=== PATIENT | female | born 1990 | race Caucasian/White ===

== ENCOUNTER 2022-03-05 19:34 | Emergency (ER) | payer SELFPAY ==
[~2022-03-05] VITALS: Ht 160 cm; Wt 74.0 kg
[2022-03-05 19:39] VITALS: BP 108/68
== END 2022-03-05 21:22 | disposition left against medical advice (07) ==
LOC: ER 19:34
DX: Z53.21 Procedure and treatment not carried out due to patient leaving prior to being seen by health care provider (principal)